=== PATIENT | female | born 2000 | race Caucasian/White ===

== ENCOUNTER 2019-04-18 16:24 | Emergency (ER) | payer OTHER ==
[~2019-04-18] VITALS: Ht 154.9 cm; Wt 45.5 kg
[2019-04-18] MEDS ORDERED: SILVADENE1 % EX (17:02)
[2019-04-18 17:09] VITALS: BP 110/68
== END 2019-04-18 17:10 | disposition home or self-care (01) | DRG 607 ==
LOC: ED 16:24
DX: L55.9 Sunburn, unspecified (principal); F17.210 Nicotine dependence, cigarettes, uncomplicated

== ENCOUNTER 2024-07-28 16:13 | Emergency (ER) | payer OTHER ==
[~2024-07-28] VITALS: Ht 154.9 cm; Wt 72.6 kg
[~2024-07-28 16:13] MED LIST: CLINDAMYCIN300 M1 PO; MACROBID100 M1 PO; NAPROXEN500 MG PO; PENICILLN VK500 MG PO; SILVADENE1 % EX
[2024-07-28 17:56] VITALS: BP 115/69
[2024-07-28] MEDS ORDERED: ALBUTEROL SULFATE 8 GM INH IN ONE (18:40)
[2024-07-28] MEDS ORDERED: ZYRTEC10 MG PO (18:44)
[2024-07-28] MEDS ORDERED: ZPAK PO (18:44)
[2024-07-28] MEDS ORDERED: PREDNISONE20 MG PO (18:44)
[2024-07-28] MEDS ORDERED: PROAIR HFA IN (18:44)
[2024-07-28] MEDS ORDERED: predniSONE 20 MG/TAB PO ONE (18:45)
[2024-07-28 19:02] VITALS: BP 115/69
== END 2024-07-28 19:17 | disposition home or self-care (01) ==
LOC: ED 16:13
DX: J40 Bronchitis, not specified as acute or chronic (principal); J02.9 Acute pharyngitis, unspecified; F17.200 Nicotine dependence, unspecified, uncomplicated; Z20.822 Contact with and (suspected) exposure to COVID-19

== ENCOUNTER 2024-08-14 11:51 | Emergency (ER) | payer OTHER ==
[~2024-08-14] VITALS: Ht 154.9 cm; Wt 70.0 kg
[~2024-08-14 11:51] MED LIST changes: +PREDNISONE20 MG PO; +PROAIR HFA IN; +ZPAK PO; +ZYRTEC10 MG PO
[2024-08-14 13:10] LABS: URINE BILIRUBIN - DIPSTICK Negative (NEGATIVE); URINE BLOOD DIPSTICK Large (NEGATIVE); URINE GLUCOSE - DIPSTICK Negative (NEGATIVE); URINE KETONE Negative (NEGATIVE); URINE LEUK ESTERASE Negative (NEGATIVE); URINE NITRITE - DIPSTICK Negative (Negative); URINE PH 7.5 (4.5-8.0); URINE PROTEIN - DIPSTICK Trace mg/dL (NEG-TRACE); URINE UROBILINOGEN - DIPSTICK 0.2 E.U./dL (0.2)
[2024-08-14 13:13] LABS: BASO% 0.1 % (0-3); EOS% 1.5 % (0-8); HEMATOCRIT 39.5 % (37.0-47.0); HEMOGLOBIN 12.9 g/dl (12.0-16.0); IMMATURE GRANULOCYTES 0.1 % (0.0-5.0); LYMPH% 21.6 % (15-41); MEAN CELL VOLUME 93.6 fL CALC (80.0-100.0); MEAN CORPUSCULAR HGB 30.6 pG CALC (26.0-32.0); MEAN CORPUSCULAR HGB CONC 32.7 g/dL CAL (32.0-36.0); MONO% 6.9 % (2-13); NEUT# 7.13 thou/uL (2.00-7.15); NEUT% 69.8 % (42-76); RED BLOOD COUNT 4.22 mill/uL (4.20-5.60); RED CELL DISTRI WIDTH 12.6 % (11.5-15.5); URINE COLOR Yellow
[2024-08-14 13:20] LABS: URINE RBC 50-100 RBC/hpf (0-5); URINE WBC 0-2 WBC/hpf (0-5)
[2024-08-14 13:28] LABS: ALBUMIN 4.5 g/dL (3.2-5.0); BILIRUBIN, TOTAL 0.4 mg/dL (0.02-1.3); CREATININE 0.6 mg/dL (0.5-1.0); POTASSIUM 3.9 mmol/l (3.5-5.1); TOTAL PROTEIN 7.2 g/dL (6.3-8.2)
[2024-08-14 15:51] VITALS: BP 112/74
== END 2024-08-14 15:51 | disposition home or self-care (01) ==
LOC: ED 11:51
PROVIDERS: Nurse Practitioner
DX: N93.9 Abnormal uterine and vaginal bleeding, unspecified (principal); F17.200 Nicotine dependence, unspecified, uncomplicated